=== PATIENT | female | born 1965 | race Caucasian/White ===

== ENCOUNTER 2024-02-26 13:48 | Outpatient (CLI) | payer OTHER, SELFPAY ==
[2024-02-26 15:23] LABS: Basophils Percent Auto 0.5 % (0.2-1.2); Eosinophils Absolute Auto 0.1 K/mm3 (0-0.3); Eosinophils Percent Auto 1.1 % (0-4.4); Hematocrit 46.1 % (37.0-47.0); Hemoglobin 15.4 g/dL (12.0-15.0); Immature Granulocyte Absolute 0.02 K/mm3 (0.00-0.031); Immature Granulocyte Percent A 0.2 % (0-0.5); Lymphocytes Absolute Auto 2.04 K/mm3 (0.9-3.2); Lymphocytes Percent Auto 24.2 % (18.3-44.2); Mean Corpuscular HGB Conc 33.4 g/dl (32-36); Mean Corpuscular Volume 89.9 fl (80-100); Mean Platelet Volume 10.2 fl (7.4-10.4); Monocytes Absolute Auto 0.6 K/mm3 (0.1-0.6); Monocytes Percent Auto 6.5 % (2.6-8.5); Neutrophils Absolute Auto 5.7 K/mm3 (1.3-6.7); Neutrophils Percent Auto 67.5 % (45.5-73.1); Platelet Count Result 244 k/mm3 (150-375); Red Blood Count 5.13 M/mm3 (4.2-5.4); Red Cell Distribution Width 12.7 % (11.5-14.5); White Blood Count 8.4 K/mm3 (4.5-10.0)
[2024-02-26 15:34] LABS: Albumin Level 4.7 g/dL (3.5-5.1); Anion Gap 10 mmol/L (4-12); Blood Urea Nitrogen 9 mg/dL (7-17); Calcium 9.7 mg/dL (8.4-10.2); Carbon Dioxide 30 mmol/L (22-30); Chloride 98 mmol/L (98-107); Estimated Glomerular Filt Rate > 60; Glucose 94 mg/dL (65-110); Potassium 4.1 mmol/L (3.4-5.0); Sodium 138 mmol/L (137-145)
[2024-02-26 15:40] LABS: Urine Cotinine NEGATIVE
[2024-02-26 17:27] LABS: Hemoglobin A1C 5.6 % (<5.7)
== END 2024-02-26 13:49 | disposition home or self-care (01) ==
LOC: ANHSURGERY 13:56
PROVIDERS: PCP Internal Medicine; Visit Provider Orthopaedic Surgery
DX: M17.12 Unilateral primary osteoarthritis, left knee (principal); Z01.818 Encounter for other preprocedural examination
CPT/HCPCS: 80048; 80307; 82040; 83036; 85025; 86850; 86900; 86901; 87081

== ENCOUNTER 2024-03-10 01:58 | Day surgery (SDC) | payer OTHER, SELFPAY ==
--- NOTE | 2024-02-26 14:10 | PC.NURSE ---
Report to the Outpatient Waiting Room, entrance under the green pavilion located off [facility], at time ____06:00AM___ on date ____03/10/24___. Planned Procedure Time: __07:30AM . Time changes happen often and if your time is changed the preop area will call you the afternoon before. - You and your visitor will be asked to self-screen and do not enter if you have any COVID symptoms. - A mask is optional within the hospital at this time. Patients may have clear liquids (water, carbonated beverages, clear teas, apple juice) until 3 hours prior to surgery with a maximum of 20 ounces. - No food from midnight until time of surgery - Infants may have breast milk until 4 hours before surgery, infant formula 6 hours prior to surgery. Take the following medications with a SIP of water the morning of surgery: NONE DO NOT STOP ANY OF YOUR OTHER PRESCRIPTION MEDICATIONS PRIOR TO SURGERY ?EXCEPT THE FOLLOWING Medications to discontinue per physician NONE Date to take last dose Please no make-up, nail swedish, hairspray, perfume, deodorant, or body powder the day of surgery. No jewelry (including any body piercings) or valuables the day of surgery, leave them at home. Please take a shower or bath the night before, or the morning of, surgery with an antibacterial soap. Wear comfortable, loose fitting clothing. - Jewelry must be removed prior to entering the operating room. Rings and piercings that are not removed may be cut off. - The hospital will not accept responsibility for valuables. - Please leave all valuables, including medications, at home the day of surgery. If you are going home after surgery, a licensed dolly driver must drive you home. - NO public transportation without another adult if you receive anesthesia. - We recommend that an adult stay with you for 24 hours following discharge. - We also recommend that you do not drive, make important decision, drink alcoholic beverages, or take any drugs that were not prescribed by your health care provider for at least 24 hours after your discharge time. Follow any additional instructions given to you from your surgeon. If you or anyone in your household have experienced Covid symptoms in the past week, please notify your surgeon or the nurse liaison at the phone number below for possible testing. Telephone instructions given to ____PATIENT and asked if any additional questions and then verbalized understanding. Patient advised to call surgeon office or pre surgery nurse liaison [phone] if any additional questions.
[2024-02-26 15:06] VITALS: BP 99/65; PULSE 59; RESP 16; TEMP 36.2; O2SAT 97; BMI 31.8
--- NOTE | 2024-03-07 07:34 | PM.IMHP ---
H&P: HPI History of Present Illness Date/Time: 03/07/24 07:34 Chief Complaint: Left knee DJD Narrative: 58-year-old female who presents today for a left total knee arthroplasty. Patient has severe medial compartment osteoarthritis in the left knee. She has continued symptoms of pain in the knee on a daily basis. It is affecting her daily lifestyle. She did have arthroscopy done to this knee in 2019. She has also multiple cortisone injections and has tried different anti-inflammatories. None of which have get her than her satisfactory improvement of her symptoms. At this point she feels she is ready to proceed with total knee arthroplasty. Review of Systems Review of Systems: All systems reviewed & are unremarkable except as noted in HPI and below PMFSH Past Medical History Medical History Hypertension Surgical History Surgical History History of foot surgery right 5th toe History of knee surgery left Family History Family History Mother Heart disease Diabetes mellitus Father Heart disease Social History Social History (Updated 02/04/24 @ 14:32 by Anh Villegas CMA) Smoking packs per day: 1 Smoking cigarettes per day: 20.0 Years smoked: 41 Smoking pack-years: 41.00 Smoking status: Former smoker Tobacco type: cigarettes Smoking end date: 01/27/24 Alcohol intake: current Drinks per week: 12 Alcohol use details: drinks occasionally on weekends Substance use: never Do You Feel Safe in your Home?: Yes Lack of Transportation: No Lack of Food: Never True Current Housing: I Have Housing Concerned About Future Housing: No Difficulty Paying Gas/Electric Bills: No Difficulty Paying for Meds: No Currently Unemployed: No Education: High School Diploma/GED Difficulty w/ Childcare or Family Care: No Living arrangements: with family Additional living arrangements comments: with Fiance Occupation/Education: retired Spiritual care concerns: No Meds Home Medications and Allergies Home Medications Medication Instructions Recorded Confirmed Type lisinopril 40 mg tablet 40 mg PO DAILY 11/14/23 02/26/24 History rosuvastatin 5 mg tablet 5 mg PO DAILY 11/14/23 02/26/24 History Allergies Allergy/AdvReac Type Severity Reaction Status Date / Time No Known Allergies Allergy Verified 02/26/24 15:09 Exam Narrative: 58-year-old female alert pleasant. She is 5 ft 5 and 181 lb, BMI is 30.1. Left knee range of motion is from 7-130 degrees. Trace effusion. Normal stability AP and mediolateral in the knee. Hip range of motion is full without discomfort, negative Stinchfield maneuver. There is no edema in the lower extremity. Moderate medial joint line tenderness to palpation. 2+ dorsalis pedis posterior artery pulse palpable. She has normal sensation in the left leg. Resp: Auscultation: clear to auscultation bilaterally Cardio: Rate: regular rate Rhythm: regular rhythm Assessment and Plan Assessment and plan (1) Osteoarthritis of left knee: Qualifiers: Osteoarthritis type: primary Qualified Code(s): M17.12 - Unilateral primary osteoarthritis, left knee Code(s): M17.12 - Unilateral primary osteoarthritis, left knee Status: Acute Plan 58-year-old female who has severe medial compartment osteoarthritis with continued symptoms. Patient feels this point she is ready to proceed with total knee arthroplasty. Surgical procedures well as the risks and complications were discussed in detail all questions were answered and we proceed. Patient will see her primary care doctor for pre-surgical clearance. She did see cardiology due to some chest heaviness. She had an echocardiogram done which showed ejection fraction at 70%. She has been cleare
[2024-03-10] VITALS (14 sets, daily range): BP systolic 122–161; BP diastolic 60–90; PULSE 59–90; RESP 9–18; TEMP 36.1–36.6; O2SAT 94–100; BMI 30.8
--- NOTE | ~2024-03-10 | XR_ITS ---
[id number] Ordering provider: Calvin Bolaños MD History: . POST-OP, LEFT TKA . Comparison: None. FINDINGS: BONES: No acute fracture or dislocation. JOINT SPACES: Total knee arthroplasty SOFT TISSUES: Postoperative changes anteriorly. IMPRESSION: No acute osseous abnormality left knee. Postoperative changes for total knee arthroplasty. Reviewed, dictated and finalized at location A.
--- NOTE | 2024-03-10 06:43 | P.PNAN_ITS ---
Anes - Initial Pre Proc Eval Procedure: Operation Date: 03/10/24 07:30 Proposed Procedures p Left Total Knee Arthroplasty - Calvin Bolaños MD Date/Time: 03/10/24 06:43 Surgeon: Calvin Bolaños MD Pre Op Diagnosis: oa left knee Patient Data Age: 59 Gender: F Height: 1.62 m Weight: 83.4 kg Last Vital Signs Temp 36.2 C L 02/26/24 15:06 Pulse 59 L 02/26/24 15:06 Resp 16 02/26/24 15:06 BP 99/65 L 02/26/24 15:06 Pulse Ox 97 02/26/24 15:06 O2 Del Method Room Air 02/26/24 15:06 Allergies Allergy/AdvReac Type Severity Reaction Status Date / Time No Known Allergies Allergy Verified 02/26/24 15:09 Home Medications Medication Instructions Recorded Confirmed Type lisinopril 40 mg tablet 40 mg PO DAILY 11/14/23 02/26/24 History rosuvastatin 5 mg tablet 5 mg PO DAILY 11/14/23 02/26/24 History Patient hx anesthesia problems: none Family hx anesthesia problems: none Results Review: All pre-operative results and documents have been reviewed as part of the pre- operative evaluation. [facility] Past Medical History Medical History Hypertension Surgical History Surgical History History of foot surgery right 5th toe History of knee surgery left Family History Family History Mother Heart disease Diabetes mellitus Father Heart disease Social History Social History (Updated 02/04/24 @ 14:32 by Anh Villegas CMA) Smoking packs per day: 1 Smoking cigarettes per day: 20.0 Years smoked: 41 Smoking pack-years: 41.00 Smoking status: Former smoker Tobacco type: cigarettes Smoking end date: 01/27/24 Alcohol intake: current Drinks per week: 12 Alcohol use details: drinks occasionally on weekends Substance use: never Do You Feel Safe in your Home?: Yes Lack of Transportation: No Lack of Food: Never True Current Housing: I Have Housing Concerned About Future Housing: No Difficulty Paying Gas/Electric Bills: No Difficulty Paying for Meds: No Currently Unemployed: No Education: High School Diploma/GED Difficulty w/ Childcare or Family Care: No Living arrangements: with family Additional living arrangements comments: with Fiance Occupation/Education: retired Spiritual care concerns: No Anes - Eval Final PreProcedure Day of Procedure 03/10/24 06:43 Patient weight: obese Heart: regular rate and rhythm Lungs: clear to auscultation Airway: Mallampati scale class III Neurological: alert and oriented Last oral intake: >/= 8 hours ASA classification: III Emergent: no Anesthetic plan: proceed Anesthesia type and monitoring: general ETT and standard monitoring Results Review: All pre-operative results and documents have been reviewed as part of the pre- operative evaluation. Informed Consent: The patient's anesthetic plan and its attendant risks and benefits were discussed with the patient/family/POA. Questions were solicited and answers provided to the satisfaction of the patient/family/POA.
[2024-03-10] MEDS: ACETAMINOPHEN 500 MG TABLET 1000 MG PO (06:52)
[2024-03-10] MEDS: VANCOMYCIN 1,250 MG/NS 250 ML BAG 166.67 MG IVPB (06:53)
[2024-03-10] MEDS: TRANEXAMIC ACID 1,000MG/ISO100 1,000 MG/100 ML BAG 200 MG IVPB (06:54)
[2024-03-10] MEDS: LACTATED RINGERS 1,000 ML 30 ML IV CONT ×2 (07:06→10:20)
--- NOTE | 2024-03-10 07:22 | WPDHPUPDATE1 ---
History and Physical Update Update Date/Time: 03/10/24 07:22 History and Physical has been reviewed, including an updated exam of the patient. There are NO changes in the patient's condition. Risks, benefits, and alternatives have been discussed and questions answered. Patient agrees to proceed with procedure.
[2024-03-10] MEDS: ceFAZolin 2 GM/D5W 50 ML 2 GM/50 ML BAG IVPB ×3 (07:25→21:10)
[2024-03-10] MEDS: SODIUM CHLORIDE 0.9% IV 37.7 ML, MORPHINE SULFATE INJ (*CRX) 2 MG, ROPivacaine HCL 1% 2... INFILTRATE (07:59)
[2024-03-10] MEDS: ceFAZolin SODIUM 1 GM VIAL 3 GM (08:00)
[2024-03-10] MEDS: GENTAMICIN BONE CEMENT REFOBACIN 1 EACH TOPICAL (09:13)
[2024-03-10] MEDS: TRANEXAMIC ACID 1,000 MG/10 ML AMPUL 1000 MG IV PUSH (09:25)
[2024-03-10] MEDS: KETOROLAC 15 MG/ML VIAL (*BKC) IV PUSH ×3 (09:25→21:07)
[2024-03-10] MEDS: ceFAZolin SODIUM 1 GM VIAL 2 GM IV PUSH (09:26)
--- NOTE | 2024-03-10 10:27 | PM.OP ---
Procedure Note - Brief Procedure Note - Brief Date of procedure: 03/10/24 oa left knee Procedure performed: Left total knee arthroplasty Surgeon: YAHAIRA Bender Findings: 59-year-old female who underwent left total knee arthroplasty on 03/10. I was involved in the procedure including positioning the patient on the OR table as well as 1st assisting to the time surgery and helping to get patient to recovery. Total time spent was 3 hours
[2024-03-10] MEDS: fentaNYL CITRATE INJ (*CRX) 100 MCG/2 ML VIAL 25 MCG IV PUSH ×8 (10:28→11:41)
--- NOTE | 2024-03-10 10:31 | W.PM.PROC2 ---
Procedure Note - Detailed Date of Procedure 03/10/24 Pre-op Diagnosis oa left knee Post-op Diagnosis Same Procedure Performed Left total knee arthroplasty Surgeon Calvin Bolaños MD [facility] Anesthesia General Description of Procedure Patient was brought to the operating room and general anesthesia was administered. She received 2 g of Ancef weight based vancomycin 1 g of tranexamic acid preoperatively. The left knee was prepped draped usual fashion. Limb was exsanguinated tourniquet elevated to 275 mmHg and we quickly elevated to 300 after we can see some bleeding through. A 7 in longitudinal midline incision was used and a vastus medialis splitting approach utilized splitting the vastus medialis at the level of superior pole of patella. Partial excision of infrapatellar fat pad was performed and quadriceps synovectomy carried out. The patella had small inferior osteophyte that was debrided otherwise normal articular cartilage and I felt it was most suitable for non resurfacing. A limited lateral facetectomy was performed. A guide john was inserted on femoral canal after aspiration of canal contents using the 5 degree valgus cutting bushing, 9 mm of bone removed the distal femur. Next the tibial plateau was cut making a skim cut off the low point of the medial tibial plateau. Meniscal remnants were excised the PCL recessed. At 90? of flexion gap measured a tight 8 mm medially and 12 mm laterally. Femoral sizing guide was applied set at 5? of external rotation which matched Whitesides line. Posterior referencing pinholes were placed. The femur was cut to a size 60 which fit nicely medial to lateral and anterior posterior. At 90? the knee was a little too tight to insert the 10 mm CR insert trial therefore an additional 2 mm of bone removed the tibial plateau. After confirmation of appropriate alignment, the tibia was sized to a 67 vanguard placed at proper rotation and punched. We trialed with the 10 insert. There was appropriate balance medial to lateral at 90? with about 3 mm of anterior posterior drawer and appropriate soft tissue tension. In extension we had no play medially. It did come out to full extension but with the arthrotomy approximated with towel clips there was a slight bounce. There was 2 mm of lateral plane extension. At this point we removed the medial tibial plateau osteophyte without releasing the medial capsule. Posterior femoral osteophyte was removed and on read trialing the knee came out to full extension with 1 mm medial opening to lateral negative bounce and had appropriate stability throughout range of motion. Patellar tracking was excellent even with the tourniquet up. Lug holes were drilled. Step drill was used to make multiple perforations in her tibial plateau and distal femur. Bone quality was excellent. Bony surfaces were thoroughly irrigated and dried. Using 2 batches of methylmethacrylate 1 with gentamicin powder cement was applied to the 67 vanguard tibial component and the 60 left CR femoral component cement applied the tibial plateau and pressurized tibial component fully seated cement applied the femur the femoral component fully seated the knee brought into extension with 11 mm 5 1 insert for pressurization. Tourniquet was released at 95 minutes. After cement hardening excess cement was sought for removed and hemostasis was achieved. 2 additional g of Ancef and 1 more g of TXA were given at this time. We trialed with the 10 insert which had the same findings as above and was placed without difficulty locked the locking pin range of motion stability patellar tracking reconfirmed. Arthrotomy was closed with 2. Vicryl is a 1. Unidirectional barbed Stratafix suture. The split closed with 1. Vicryl the skin closed with 2 subcutaneous Vicryl 3-0 subcuticular Monocryl and glue EBL is 150 cc. There were no complications she was transferred postop recovery room in stable condition. [facility]
--- NOTE | 2024-03-10 12:42 | PC.NURSE ---
This patient, Tricia Lao, was admitted to Medical Room 342-01. Patient/family oriented to hospital policies and general routines including ID bracelet, bed and alarms, visiting hours, pain management, procedures, bathroom and other care routines, personal items, smoking policy, room service/diet, and visiting hours. Information on how to activate the Rapid Response Team has been discussed. Patient/Family are encouraged to report perceived risks to care and to ask questions if they do not understand what they are told or what they should do.
[2024-03-10] MEDS: ACETAMINOPHEN 325 MG TABLET 650 MG PO ×3 (12:45→21:08)
[2024-03-10] MEDS: oxyCODONE HCL (*CRX) 5 MG TAB IR PO ×3 (12:45→21:08)
--- NOTE | 2024-03-10 15:25 | WPDCN ---
Assessment and Plan Assessment and plan (1) Osteoarthritis of left knee: Qualifiers: Osteoarthritis type: primary Qualified Code(s): M17.12 - Unilateral primary osteoarthritis, left knee Code(s): M17.12 - Unilateral primary osteoarthritis, left knee Status: Acute Assessment and Plan: Postoperative day 0 status post left total knee arthroplasty. Wound care, pain control, and DVT prophylaxis deferred to Dr. Bolaños. (2) Hypertension: Code(s): I10 - Essential (primary) hypertension Status: Acute Assessment and Plan: Blood pressures were reviewed and they have been running a bit high postoperatively, likely due to pain. Continue lisinopril 40 mg daily and monitor blood pressures closely. (3) Hyperlipidemia: Code(s): E78.5 - Hyperlipidemia, unspecified Status: Acute Assessment and Plan: Continue rosuvastatin 5 mg daily. Check LFTs in a.m. Plan Thank you for allowing us to participate in this patient's care. Please do not hesitate to contact us with any questions. HPI Data of Consult Date/Time: 03/10/24 15:00 Requesting Physician: Calvin Bolaños MD Primary Care Provider: Cosmo Lucas (Khengwai)MD Consult Narrative Reason for consult: Medical management. Narrative: This is a very pleasant 59-year-old female with osteoarthritis, hypertension, and hyperlipidemia whom the hospitalist service has been consulted for help managing her medical conditions postoperatively. She presented to the hospital today for elective left total knee arthroplasty due to ongoing pain despite conservative outpatient treatment. Surgery was performed under general anesthesia with no immediate complications documented an estimated blood loss of 150 mL. She feels an almost tearing sensation in her knee with bending but her pain is pretty well controlled. She has been up with therapy without issue. She denies paresthesias, skin color, temperature changes distal to the surgical site. She also denies postoperative fever, chills, sweats, nausea, and vomiting. Regarding her chronic medical conditions, she believes that they are well controlled on home medication. She has no personal history of venous thromboembolism. Review of Systems Review of Systems: 12 systems were reviewed and are negative except for as per HPI. [facility] Past Medical History Medical History (Updated 03/10/24 @ 19:54 by Hanane Lyon PA-C) Hyperlipidemia Hypertension Osteoarthritis Surgical History Surgical History (Updated 03/10/24 @ 19:54 by Hanane Lyon PA-C) History of arthroscopy of left knee (2019) Meniscus repair. History of foot surgery Right 5th toe. History of laparoscopy Family History Family History Mother Heart disease Diabetes mellitus Father Heart disease Social History Social History (Updated 03/10/24 @ 19:54 by Hanane Lyon PA-C) Social History: Surrogate medical decision maker: Brenden Haile, significant other. Code status: Full code. Smoking packs per day: 1 Smoking cigarettes per day: 20.0 Years smoked: 41 Smoking pack-years: 41.00 Smoking status: Former smoker Tobacco type: cigarettes Second hand tobacco smoke exposure: Yes Alcohol intake: current Drinks per week: 12 Alcohol use details: Drinks occasionally on the weekends. Substance use: never Do You Feel Safe in your Home?: Yes Lack of Transportation: No Lack of Food: Never True Current Housing: I Have Housing Concerned About Future Housing: No Difficulty Paying Gas/Electric Bills: No Difficulty Paying for Meds: No Currently Unemployed: No Education: High School Diploma/GED Difficulty w/ Childcare or Family Care: No Living arrangements: with family Additional living arrangements comments: Lives with significant other. Occupation/Education: retired Spiritual care con
[2024-03-10] MEDS: SENNA/DOCUSATE SODIUM TABLET 2 TAB PO (18:00)
[2024-03-10] MEDS: VANCOMYCIN 1,000 MG/NS 250 ML 1,000 MG/250 ML BAG 250 MG IVPB (18:00)
[2024-03-10] MEDS: ROSUVASTATIN 5 MG TABLET PO (21:08)
[2024-03-10] MEDS: FAMOTIDINE 20 MG TABLET PO (21:08)
[2024-03-11] MEDS: oxyCODONE HCL (*CRX) 5 MG TAB IR PO ×3 (01:51→09:06)
[2024-03-11] MEDS: ACETAMINOPHEN 325 MG TABLET 650 MG PO ×3 (01:51→09:06)
[2024-03-11 01:57] VITALS: BP 132/58; PULSE 73; RESP 19; TEMP 36.3; O2SAT 96
[2024-03-11 05:31] VITALS: BP 133/56; PULSE 67; RESP 18; TEMP 36.2; O2SAT 96
[2024-03-11 06:00] LABS: Basophils Percent Auto 0.1 % (0.2-1.2); Hematocrit 34.8 % (37.0-47.0); Hemoglobin 11.5 g/dL (12.0-15.0); Immature Granulocyte Absolute 0.06 K/mm3 (0.00-0.031); Immature Granulocyte Percent A 0.4 % (0-0.5); Lymphocytes Absolute Auto 1.03 K/mm3 (0.9-3.2); Lymphocytes Percent Auto 7.5 % (18.3-44.2); Mean Corpuscular Hemoglobin 29.7 pg (26-34); Mean Corpuscular Volume 89.9 fl (80-100); Monocytes Absolute Auto 0.7 K/mm3 (0.1-0.6); Monocytes Percent Auto 4.7 % (2.6-8.5); Neutrophils Percent Auto 87.3 % (45.5-73.1); Platelet Count Result 199 k/mm3 (150-375); Red Blood Count 3.87 M/mm3 (4.2-5.4); Red Cell Distribution Width 12.5 % (11.5-14.5); White Blood Count 13.8 K/mm3 (4.5-10.0)
[2024-03-11] MEDS: VANCOMYCIN 1,000 MG/NS 250 ML 1,000 MG/250 ML BAG 250 MG IVPB (06:05)
[2024-03-11] MEDS: ceFAZolin 2 GM/D5W 50 ML 2 GM/50 ML BAG IVPB (06:05)
[2024-03-11 06:09] LABS: Alanine Aminotransferase 13 U/L (6-35); Albumin Level 3.5 g/dL (3.5-5.1); Alkaline Phosphatase 75 U/L (38-126); Anion Gap 8 mmol/L (4-12); Aspartate Amino Transferase 23 U/L (14-36); Bilirubin,Total 0.3 mg/dL (0.2-1.3); Blood Urea Nitrogen 10 mg/dL (7-17); Calcium 8.7 mg/dL (8.4-10.2); Carbon Dioxide 26 mmol/L (22-30); Chloride 104 mmol/L (98-107); Estimated CRCL calculation 68 ml/min; Estimated Glomerular Filt Rate > 60; Glucose 127 mg/dL (65-110); Magnesium 2.1 mg/dL (1.6-2.3); Sodium 138 mmol/L (137-145)
--- NOTE | 2024-03-11 07:07 | PM.PNORT ---
Subjective Subjective Date/Time Seen: 03/11/24 07:07 Interval history: Postop day 1 patient is alert. She is afebrile vital signs stable. Morning labs are noted. Patient was up yesterday walking with therapy and was comfortable. Overall pain is well controlled. She has some mild swelling in the knee. Dressing is dry and intact. Neurovascularly she is intact. She is able do a straight leg raise in the bed. Eliquis will get started this morning. Plan will be to have patient work with therapy this morning and once IV antibiotics been completed she will be discharged home. Objective Data Vital Signs Vital Signs: Vital Signs - 24 hr 03/10/24 07:08 03/10/24 10:20 03/10/24 10:35 Temperature 97.3 F L 97.9 F Pulse Rate 59 L 90 78 Respiratory Rate 18 12 12 Blood Pressure 122/71 156/80 H 160/90 H Pulse Oximetry 97 100 100 Oxygen Delivery Room Air Simple Face Mask Simple Face Mask Oxygen Flow Rate 8 8 03/10/24 10:50 03/10/24 11:05 03/10/24 11:20 Temperature Pulse Rate 73 70 69 Respiratory Rate 9 L 9 L 9 L Blood Pressure 145/82 H 154/73 H 144/80 H Pulse Oximetry 100 96 95 Oxygen Delivery Simple Face Mask Room Air Room Air Oxygen Flow Rate 8 03/10/24 11:35 03/10/24 11:50 03/10/24 12:05 Temperature Pulse Rate 78 73 74 Respiratory Rate 10 L 11 L 9 L Blood Pressure 148/76 H 161/78 H 160/77 H Pulse Oximetry 94 94 99 Oxygen Delivery Room Air Room Air Room Air Oxygen Flow Rate 03/10/24 12:27 03/10/24 12:45 03/10/24 13:17 Temperature 97.6 F 97.7 F 97.1 F L Pulse Rate 69 76 68 Respiratory Rate 18 18 18 Blood Pressure 158/66 H 158/73 H 161/65 H Pulse Oximetry 97 97 97 Oxygen Delivery Oxygen Flow Rate 03/10/24 14:01 03/10/24 15:03 03/10/24 22:02 Temperature 97.0 F L 97 F L Pulse Rate 67 74 Respiratory Rate 18 18 Blood Pressure 157/71 H 137/60 Pulse Oximetry 96 96 Oxygen Delivery Room Air Oxygen Flow Rate 03/10/24 20:00 03/11/24 01:57 03/11/24 05:31 Temperature 97.4 F L 97.2 F L Pulse Rate 73 67 Respiratory Rate 19 18 Blood Pressure 132/58 L 133/56 L Pulse Oximetry 96 96 Oxygen Delivery Room Air Oxygen Flow Rate Intake/Output Intake/Output: Intake & Output 03/08/24 03/09/24 03/10/24 03/11/24 23:59 23:59 23:59 23:59 Intake Total 3200 300 Balance 3200 300 Meds/Results Medications: Active Medications Generic Name Dose Route Start Last Admin Trade Name Freq PRN Reason Stop Dose Admin Acetaminophen 650 mg 03/10/24 13:00 03/11/24 06:06 Acetaminophen 325 Mg Tablet PO 650 mg Q4HR GALO Administration Apixaban 2.5 mg 03/11/24 09:00 Apixaban 2.5 Mg Tablet PO 03/22/24 21:01 Q12HR GALO Cefdinir 300 mg 03/11/24 14:00 Cefdinir 300 Mg Capsule PO Q12HR GALO Celecoxib 200 mg 03/11/24 08:00 Celecoxib 200 Mg Capsule PO DAILY@0800 GALO Diphenhydramine HCl 25 mg 03/10/24 12:12 Diphenhydramine Hcl Inj 50 Mg/Ml Vial IV PUSH Q6H PRN Itching Famotidine 20 mg 03/10/24 21:00 03/10/24 21:08 Famotidine 20 Mg Tablet PO 20 mg Q12HR GALO Administration Cefazolin Sodium 2 gm in 50 mls @ 100 mls/hr 03/10/24 15:00 03/11/24 06:05 Ancef 2 Gm/D5w 50 Ml IVPB 03/11/24 07:29 100 mls/hr Q8H GALO Administration Vancomycin HCl 1,000 mg in 250 mls @ 250 mls/hr 03/10/24 19:00 03/11/24 06:05 Vancomycin 1,000 Mg/Ns 250 Ml IVPB 03/11/24 07:59 250 mls/hr Q12H GALO Administration Morphine Sulfate 2 mg 03/10/24 12:12 Morphine Sulfate (*Crx) 2 Mg/Ml Inj IV PUSH Q2H PRN Breakthrough Pain Rated 4-6 or NPO Naloxone HCl 0.1 mg 03/10/24 12:12 Naloxone Hcl 0.4 Mg/Ml Vial IV PUSH Q2M PRN Opiate Reversal Ondansetron HCl 4 mg 03/10/24 12:12 Ondansetron Inj 4 Mg/2 Ml Vial IV PUSH Q4H PRN Nausea And Vomiting Oxycodone HCl 5 mg 03/10/24 13:00 03/11/24 06:06 Oxycodone Hcl (*Crx) 5 Mg Tab Ir PO 5 mg Q4HR GALO Administration Oxycodone HCl
--- NOTE | 2024-03-11 07:12 | PM.DS ---
DS: Admitting Diagnosis Discharge Date 03/11 Admitting Diagnosis Left knee DJD DS: Discharge Diagnosis Discharge Diagnosis (1) Osteoarthritis of left knee: Qualifiers: Osteoarthritis type: primary Qualified Code(s): M17.12 - Unilateral primary osteoarthritis, left knee Code(s): M17.12 - Unilateral primary osteoarthritis, left knee Status: Acute DS: Summary Hospital Course Hospital Course: 59-year-old female who underwent left total knee arthroplasty on 03/10. Underwent the procedure without complications. Postoperatively she has been afebrile vital signs are stable. Neurovascularly she is intact. Pain is well controlled with scheduled Tylenol every 4 hours as well as oxycodone 5 mg. She is also on Celebrex 200 mg a day. She is on Eliquis for DVT prophylaxis. She is weight-bearing as tolerated. Morning of postop day 1 patient was alert and comfortable. Dressing is dry and intact. She will be discharged home on 03/11. She will go home with 1 week course of Omnicef as well as Senokot and MiraLax. Patient has outpatient therapy starting 2 days. She was advised to keep leg elevated home prevent swelling but also do her exercises on an hourly basis. Patient was advised any questions or concerns she is to call the office otherwise we will see her at appointed dates. Time Spent with Patient Time attestation: Total time spent providing and/or coordinating discharge services: DS: Data Data Completed and Pending Labs on day of discharge: Labs from last 24 hours 03/11/24 05:18 WBC 13.8 H RBC 3.87 L Hgb 11.5 L D Hct 34.8 L MCV 89.9 MCH 29.7 MCHC 33.0 RDW 12.5 Plt Count 199 MPV 11.0 H Immature Gran % (Auto) 0.4 Neut % (Auto) 87.3 H Lymph % (Auto) 7.5 L [place] % (Auto) 4.7 Eos % (Auto) 0.0 Baso % (Auto) 0.1 L Lymph # (Auto) 1.03 [place] # (Auto) 0.7 H Eos # (Auto) 0.0 Baso # (Auto) 0.0 Abs Immat Gran (auto) 0.06 H Absolute Neuts (auto) 12.0 H Absolute Nucleated RBC 0.000 Nucleated RBC % 0.0 Sodium 138 Potassium 4.0 Chloride 104 Carbon Dioxide 26 Anion Gap 8 BUN 10 Creatinine 0.80 Estim Creat Clear Calc 68 Estimated GFR > 60 Glucose 127 H Calcium 8.7 Magnesium 2.1 Total Bilirubin 0.3 Direct Bilirubin 0.0 AST 23 ALT 13 Alkaline Phosphatase 75 Total Protein 6.0 L Albumin 3.5 Discharge Plan Discharge Patient Disposition: Home, Self-Care Discharge Instructions: CYNTHIA BROOKE M.D [facility] [address] [address] [address] [place] [address] POST-OPERATIVE DISCHARGE INSTRUCTIONS TOTAL KNEE ARTHROPLASTY 1. When resting, do not rest in the chair.When resting, lie on your back, with back flat on the couch or bed, with leg elevated above heart to minimize swelling. You may put a pillow under your head. . Significant swelling could indicate a blood clot and if this occurs call the office (or go to the ER) to have a venous ultrasound. Therefore, do not rest in a chair. 2. At least five times a day spend several minutes stretching your knee into flexion while sitting in the chair and also stretching your knee out straight The abilities to bend your knee fully and straighten your knee fully are two most important knee functions to focus on during your recovery. 3. It is ok to sit in chair to eat, use the toilet and receive a guest and to do your stretching exercises, but, sitting in a chair will cause your leg to swell. Therefore, avoid additional time sitting in the chair. and don't rest in the chair. 4. Wound Care: Nursing will give you an additional Mepilex dressing at the time of discharge. Patient to remove the dressing and apply a new Mepilex dressing at home 7 days after surgery and leave the dressing on until seen in office. It is normal to see a small amount of blood on the silver pad of the Mepilex dressing. Its designed to hold small spots of blood. However, if the blood reaches the edge of
[2024-03-11] MEDS: SENNA/DOCUSATE SODIUM TABLET 2 TAB PO (09:05)
[2024-03-11] MEDS: FAMOTIDINE 20 MG TABLET PO (09:06)
[2024-03-11] MEDS: polyethylene glycoL 3350 17 GM POWD.PACK PO (09:06)
[2024-03-11] MEDS: APIXABAN 2.5 MG TABLET PO (09:06)
[2024-03-11] MEDS: CELECOXIB 200 MG CAPSULE PO (09:06)
== END 2024-03-11 11:50 | disposition home or self-care (01) ==
LOC: ANHSURGERY 05:58 → ANH3MED 12:14
PROVIDERS: Physician Assistant; Physician Assistant Surgical; PCP Internal Medicine; Visit Provider Orthopaedic Surgery
PROC: (CPT 27447; principal; 2024-03-10 07:30)
DX: M17.12 Unilateral primary osteoarthritis, left knee (principal); I10 Essential (primary) hypertension; E78.5 Hyperlipidemia, unspecified; Z87.891 Personal history of nicotine dependence; E66.9 Obesity, unspecified; Z68.33 Body mass index [BMI] 33.0-33.9, adult
CPT/HCPCS: 27447; 36415; 73560; 80048; 80076; 80307; 82040; 83036; 83735; 85025; 86850; 86900; 86901; 87081; 97110; 97116; 97161; 97165; 97535; A9270; C1713; C1776; J0171; J0690; J1100; J1170; J1885; J2250; J2270; J2405; J2704; J2795; J3010; J3370; J7120

== ENCOUNTER 2025-05-19 11:37 | Outpatient (CLI) | payer OTHER, SELFPAY ==
--- NOTE | ~2025-05-19 | XR_ITS ---
EXAMINATION: XR knee LT 3V, 05/19/2025 11:52 CDT HISTORY: Presence of left artificial knee joint; 1 year post op COMPARISON: No comparisons available. Findings: No acute fracture or malalignment. Left prosthesis intact. Moderate right-sided tricompartmental degenerative changes Soft tissues unremarkable. Impression: No acute fracture or malalignment. Reviewed, dictated and finalized at location P. Impression: No acute fracture or malalignment.
--- OUTSIDE RECORDS SUMMARY | 2025-05-19 13:00 | XMS_ITS | Clinical Summary ---
Author Organization [facility] Address [address] [place] [address] Care Team Providers Care Linux Support Engineer Name Role Phone Mk Lucas MD Primary Care Provider [phone] Allergies No known active allergies Medications telmisartan-hydr ochlorothiazid (MICARDIS HCT) 40-12.5 mg per tablet TK 08/14 T PO QD 1 03/07/2019 Active albuterol HFA (PROVENTIL HFA,VENTOLIN HFA,PROAIR HFA) 90 mcg/actuation inhaler Inhale 2 puffs every 6 hours as needed 10/07/2018 Active rosuvastatin (CRESTOR) 5 mg tablet daily Active meloxicam (MOBIC) 7.5 mg tabletIndication s:Internal derangement of knee, unspecified laterality TAKE 1 TABLET BY MOUTH EVERY DAY 30 tablet 09/28/2020 Active Active Problems Problem Noted Date Diagnosed Date Chronic obstructive lung disease 02/10/2019 Surgical History Surgery Date Site/Laterality Comments TOE SURGERY KNEE ARTHROSCOPY 04/12/2020 Left Medical History Medical History Date Comments Emphysema of lung Hypertension Family History Medical History Relation Name Comments Cancer Father Diabetes Father Heart disease Father Clotting disorder Mother Diabetes Mother Stroke Mother Relation Name Status Comments Father Mother Social History Tobacco Use Types Packs/Day Years Used Date Smoking Tobacco: Every Day Cigarettes 1 25 Alcohol Use Standard Drinks/Week Comments Yes 0 (1 standard drink = 0.6 oz pur e alcohol) Personal Safety Answer Date Recorded Getting School Help Needed Not on file 10/25 Comments Unknown Sex and Gender Information Value Date Recorded Sex Assigned at Not on file 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 Gender Identity Not on file Sexual Orientation Not on file Obstetrics History Last Filed Vital Signs Vital Sign Reading Time Taken Comments Blood Pressure 156/80 04/12/2020 8:01 AM CDT Pulse 56 04/12/2020 8:01 AM CDT Temperature 36.1 C (97 F) 04/12/2020 8:01 AM CDT Respiratory Rate - - Oxygen Saturation 100% 04/12/2020 8:01 AM CDT Inhaled Oxygen Concentration - - Weight 76 kg (167 lb 9.6 oz) 04/12/2020 8:01 AM CDT Height 165.1 cm (5' 5) 04/12/2020 8:01 AM CDT Body Mass Index 27.89 04/12/2020 8:01 AM CDT Plan of Treatment Not on file Insurance [facility] Care Teams Linux Support Engineer Relationship Specialty Start Date End Date Mk Lucas MD [address] [place] [address] PCP - General 02/19/19
--- OUTSIDE RECORDS SUMMARY | 2025-05-19 13:00 | XMS_ITS | Clinical Summary ---
Author Organization [facility] Address [address] [place] [address] Care Team Providers Care Handbook Writer Name Role Phone Mk Lucas MD Primary Care Provider [phone] Allergies No known active allergies Medications DULoxetine 60 MG capsule Take 60 mg by mouth nightly. 11/17/2020 Active rosuvastatin 5 MG tablet Take 5 mg by mouth nightly at bedtime. 11/13/2020 Active Telmisartan-HCT Z 40-12.5 MG Tab Take 0.5 tablets by mouth nightly at bedtime. 10/10/2020 Active Active Problems Problem Noted Date Diagnosed Date Cellulitis 12/10/2020 Family History Medical History Relation Comments Heart Disease Father Hypertension Father Diabetes Mother Relation Status Comments Father Alive Mother Social History Tobacco Use Types Packs/Day Years Used Date Smoking Tobacco: Every Day Cigarettes 1 30 Smokeless Tobacco: Never Alcohol Use Standard Drinks/Week Comments Yes 20 (1 standard drink = 0.6 oz pu re alcohol) on weekends Comments No Sex and Gender Information Value Date Recorded Sex Assigned at Not on file Legal Sex Female 5:17 PM CDT Gender Identity Not on file Sexual Orientation Not on file Last Filed Vital Signs Vital Sign Reading Time Taken Comments Blood Pressure 129/97 02/24/2021 1:59 PM CDT Pulse 63 02/24/2021 1:59 PM CDT Temperature 35.7 C (96.3 F) 02/24/2021 2:16 PM CDT Respiratory Rate 18 02/24/2021 1:59 PM CDT Oxygen Saturation 99% 02/24/2021 1:59 PM CDT Inhaled Oxygen Concentration - - Weight 68 kg (150 lb) 02/24/2021 1:59 PM CDT Height 165.1 cm (5' 5) 02/24/2021 1:59 PM CDT Body Mass Index 24.96 02/24/2021 1:59 PM CDT Plan of Treatment Health Maintenance Due Date Last Done Comments Cervical Cancer Screening Pa p Smear (Age 30 to 64) Every 3 Years 1963 Colorectal Cancer Screening Colonoscopy (10 Years) 1963 Annual Physical 1966 Hepatitis C 1981 Pneumococcal Vaccine: 50+ Ye ars (1 of 2 - PCV) 1982 Cervical Cancer Screening Pa p with HPV Testing (Age 30 to 64) Every 5 Years 1993 Cervical Cancer Screening with HPV 1993 Mammogram Screening 2003 Zoster Vaccines (1 of 2) 2013 COVID-19 Vaccine ( - 2023-2 5 season) 2025 Influenza Adult (#1) 2025 DTaP, Tdap and Td Vaccines ( 2 - Td or Tdap) 12/07/2030 12/07/2020 RSV Immunization or 60+ Years (1 - 1-dose 75+ series) 2038 Meningococcal B Vaccine Aged Out No l onger eligible based on patient's age to complete this topic Meningococcal Vaccine Aged Out No pratima flavia eligible based on patient's age to complete this topic RSV Immunizations Under 20 Months Aged Out No longer eligible based on patient's age to complete this topic Insurance [employer] Advance Directives * Full Code (Latest Code Status on File) Date Activated Date Inactivated Comments 12/09/2020 5:40 PM 12/11/2020 2:52 PM Care Teams Handbook Writer Relationship Specialty Start Date End Date Mk Lucas MD [address] [facility] [address] [place] [address] PCP - General INTERNAL MEDICINE 12/09/20
--- OUTSIDE RECORDS SUMMARY | 2025-05-19 13:00 | XMS_ITS | Patient Health Record ---
Author Organization [facility] Address [address] [place] [address] Support Name Relationship Address Phone Tricia Lao Guarantor Unknown [phone] Allergies No Known Allergies Reason For Referral No Information Problems Problem Type SNOMED Code ICD Code Onset Dates Problem Status W/U Status Risk Notes Problem Osteoarthritis (835214305) Polyosteoarthri tis, unspecified (M15.9) 4 Active confirmed Problem Pain in limb (48105614) Pain in unspecified limb (M79.609) 4 Active confirmed Plan Of Treatment No Information Insurance Providers Payer Name Payer Address Payer Phone Subscriber Number Group Number Insured Name Patient Relationship to Insured Coverage Start Date Coverage End Date [employer] [address] [address] [place] [address] [id number] Tricia Lao Self - patient is the insured 4 Medical (General) History Surgical History Surgery Date(Month/Year) * NO SURGERIES; 2014-03-05
--- OUTSIDE RECORDS SUMMARY | 2025-05-19 13:00 | XMS_ITS | Clinical Summary ---
Author Organization [facility] Address [address] [place] [address] Care Team Providers Care Allopathic Doctor Name Role Phone Mk Lucas MD Primary Care Provider [phone] Source Comments [facility],non-owned Affiliates and Associated Physician Practices is amultiple site organization consisting of ambulatory clinics and hospital sitesin [place], [place], [place] and [place]. This disclosure is being madepursuant to the Care Everywhere program and may not contain all information available regarding this patient. Last updated 18.[facility] Allergies No known active allergies Medications * Be aware that medications may not be up to date on this document. Alwaysverify current medications with the patient. albuterol HFA (VENTOLIN HFA) 108 (90 BASE) MCG/ACT inhalerIndicatio ns:Influenza A Inhale 2 puffs by mouth every 6 hours as needed 1 Inhaler 5 10/07/2018 Active Active Problems No known active problems Family History Medical History Relation Name Comments Cancer - Other Father Hypertension Father Other - Cardiac Father Diabetes - Type 2 Mother Hypertension Mother Other - Cardiac Mother Asthma Neg Hx Autoimmune Disease Neg Hx Bipolar Disorder Neg Hx Cancer - Breast Neg Hx Cancer - Colon Neg Hx Cancer - Ovarian Neg Hx Cancer - Pancreatic Neg Hx Cancer - Prostate Neg Hx Depression Neg Hx Eczema Neg Hx Migraine Neg Hx Osteoporosis Neg Hx Seizures Neg Hx Sudd. <30 Neg Hx Thyroid Disease Neg Hx Ulcerative Colitis Neg Hx Relation Name Status Comments Father Alive Mother Alive Social History Tobacco Use Types Packs/Day Years Used Date Smoking Tobacco: Former Smokeless Tobacco: Never Tobacco Cessation:Counseling Given: No Alcohol Use Standard Drinks/Week Comments No 0 (1 standard drink = 0.6 oz pur e alcohol) Comments No Sex and Gender Information Value Date Recorded Sex Assigned at Not on file Legal Sex Female 6:04 PM CDT Gender Identity Not on file Sexual Orientation Not on file Last Filed Vital Signs Vital Sign Reading Time Taken Comments Blood Pressure 120/62 10/07/2018 11:28 AM YARN HANDLER Pulse 98 10/07/2018 11:28 AM YARN HANDLER Temperature 36.6 C (97.9 F) 10/07/2018 11:28 AM YARN HANDLER Respiratory Rate 20 10/07/2018 11:28 AM YARN HANDLER Oxygen Saturation 96% 10/07/2018 11:28 AM YARN HANDLER Inhaled Oxygen Concentration - - Weight 74.8 kg (165 lb) 10/07/2018 11:28 AM YARN HANDLER Height 165.1 cm (5' 5) 10/07/2018 11:28 AM YARN HANDLER Body Mass Index 27.46 10/07/2018 11:28 AM YARN HANDLER Plan of Treatment Health Maintenance Due Date Last Done Comments COLOGUARD (AGES 45-75) - COL ON CA SCREENING 1963 COLON MONITORING 1963 COLONOSCOPY - COLON CA SCREENING 1963 CT COLONOGRAPHY - COLON CA SCREENING 1963 Colorectal Cancer Screening 1963 FIT - COLON CA SCREENING 1963 FLEX SIG - COLON CA SCREENING 1963 LIPID TESTING 1963 MAMMOGRAM 1963 HIV SCREENING 1978 HEPATITIS C SCREENING 03/03/1981 DTAP/TDAP/TD VACCINES (1 - Tdap) 1982 PNEUMOCOCCAL VACCINE 50+ (1 of 1 - PCV) 2013 ZOSTER VACCINE (1 of 2) 2013 SCREENING FOR DIABETES 10/07/2018 DEPRESSION SCREENING 08/13/2024 COVID-19 VACCINE (1 - 2023-2 5 season) 2025 INFLUENZA VACCINE (#1) 2025 Respiratory Syncytial Virus (RSV) Vaccine Pt: or over 60 yrs (1 - 1-dose 75+ series) 2038 HEPATITIS B VACCINE Aged Out No longe r eligible based on patient's age to complete this topic HIB VACCINE Aged Out No longer eligi ble based on patient's age to complete this topic HPV VACCINE Aged Out No longer eligi ble based on patient's age to complete this topic MENINGOCOCCAL (Group B) VACC INE SHARED DECISION-MAKING Aged Out No longer eligibl e based on patient's age to complete this topic MENINGOCOCCAL GROUPS A/C/Y/W VACCINE Aged Out No longer eligible b ased on patient's age to complete this topic Insurance [employer] Care Teams Allopathic Doctor Relationship Specialty Start Date End Date Mk Lucas MD [address] [place] [address] [address] [place] [address] PCP - General Internal Medicine 06/08/17
== END 2025-05-19 11:38 | disposition home or self-care (01) ==
LOC: ANHIMG 11:45
PROVIDERS: PCP Internal Medicine; Visit Provider Orthopaedic Surgery
DX: Z96.652 Presence of left artificial knee joint (principal)
CPT/HCPCS: 73562